=== PATIENT | female | born 2000 | race American Indian/Alaskan Native ===

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

== ENCOUNTER 2021-11-13 19:00 | Emergency (ER) | payer BC, OTHER ==
[2021-11-14 02:56] LABS: Color,Urine Yellow (Yellow)
[2021-11-14 03:00] LABS: Bacteria,Urine 2+ /HPF (Negative); Mucus,Urine 3+ /HPF
[2021-11-14 03:01] LABS: HCG Qualitative,Urine Negative (Negative)
--- NOTE | 2021-11-14 03:24 | Emergency Department Report ---
ED Female HPI - General Chief complaint: Urogenital-Female Stated complaint: VAGINAL IRRITATION Source: patient Mode of arrival: Ambulatory Limitations: No Limitations - History of Present Illness Initial comments: Patient is a A1 20-year-old -Romanian female with no past medical history who presents to the ED with complaint of persistent vaginal itching and irritation, vaginal discharge, urinary frequency and urgency and dysuria for the last 2 months. Patient states that she has been using "home remedies" with no relief. Patient denies fever, chills, low back pain, chest pain or shortness of breath, abdominal pain, nausea and vomiting and diarrhea, dyspareunia, cough, sore throat or vaginal bleeding. MD Complaint: vaginal discharge, other (vaginal itching and irritation) -: Gradual, month(s) (2) Location: labia, other (vaginal) Radiation: non-radiating Severity: moderate Severity scale (0 -10): 4 Quality: burning, other (itching) Consistency: constant Improves with: none Worsens with: urination Are you Now?: No Last Menstrual Period: 10/23/21 EDC: 07/30/22 Associated Symptoms: vaginal discharge, dysuria. denies: vaginal bleeding, abdominal pain, nausea/vomiting, fever/chills, headaches, loss of appetite, hematuria, rash, seizure, shortness of breath, syncope, weakness - Related Data Sexually active: Yes : 1 Para: 0 A: 1 Previous Rx's Medication Instructions Recorded Last Taken Type Nitrofurantoin Monohyd/M-Cryst 100 mg PO BID #13 capsule 09/05/17 Unknown Rx [Macrobid 100 mg Capsule] Phenazopyridine [Pyridium] 100 mg PO TID #6 tab 09/05/17 Unknown Rx Amoxicillin 500 mg PO Q12H #20 capsule 03/06/18 Unknown Rx Ciprofloxacin 0.2%(Nf) 2 drops AU TID 7 Days #1 droperette 03/06/18 Unknown Rx [Ciprofloxacin Otic 0.2%(Nf)] Ibuprofen [Motrin] 600 mg PO Q8H PRN #20 tablet 03/06/18 Unknown Rx Fluconazole (Nf) [Diflucan TAB] 150 mg PO ONCE #2 tablet 11/14/21 Unknown Rx Ibuprofen [Motrin] 600 mg PO Q8H PRN #30 tablet 11/14/21 Unknown Rx Nystatin Oint [Mycostatin Oint] 1 applicatio TP BID #1 tube 11/14/21 Unknown Rx cephALEXin [Keflex] 500 mg PO Q6HR #40 capsule 11/14/21 Unknown Rx metroNIDAZOLE [Flagyl] 500 mg PO Q12HR #14 tab 11/14/21 Unknown Rx Allergies Allergy/AdvReac Type Severity Reaction Status Date / Time bee venom protein (honey bee) Allergy Shortness Verified 09/05/17 09:20 of Breath wasp Allergy Rash Uncoded 09/05/17 09:20 ED Review of Systems ROS: Stated complaint: VAGINAL IRRITATION Other details as noted in HPI Constitutional: denies: chills, fever Eyes: denies: eye pain, eye discharge, vision change ENT: denies: ear pain, throat pain Respiratory: denies: cough, shortness of breath, wheezing Cardiovascular: denies: chest pain, palpitations Endocrine: no symptoms reported Gastrointestinal: denies: abdominal pain, nausea, diarrhea Genitourinary: urgency, dysuria, frequency, discharge, other (Vaginal irritation) Musculoskeletal: denies: back pain, joint swelling, arthralgia Skin: denies: rash, lesions Neurological: denies: headache, weakness, paresthesias Psychiatric: denies: anxiety, depression Hematological/Lymphatic: denies: easy bleeding, easy bruising ED Past Medical Hx - Social History Smoking Status: Never Smoker Substance Use Type: None - Medications Home Medications: Home Medications Medication Instructions Recorded Confirmed Last Taken Type Nitrofurantoin Monohyd/M-Cryst 100 mg PO BID #13 capsule 09/05/17 Unknown Rx [Macrobid 100 mg Capsule] Phenazopyridine [Pyridium] 100 mg PO TID #6 tab 09/05/17 Unknown Rx Amoxicillin 500 mg PO Q12H #20 capsule 03/06/18 Unknown Rx Ciprofloxacin 0.2%(Nf) 2 drops AU TID 7 Days #1 droperette 03/06/18 Unknown Rx [Ciprofloxacin Otic 0.2%(Nf)] Ibuprofen [Motrin] 600 mg PO Q8H PRN #20 tablet 03/06/18 Unknown Rx Fluconazole (Nf) [Diflucan TAB] 150 mg PO ONCE #2 tablet 11/14/21 Unknown Rx Ibuprofen [Motrin] 600 mg PO Q8H PRN #30 tablet 11/14/21 Unknown Rx Nystatin Oint [Mycostatin Oint] 1 applicatio TP BID #1 tube 11/14/21 Unknown Rx cephALEXin [Keflex] 500 mg PO Q6HR #40 capsule 11/14/21 Unknown Rx metroNIDAZOLE [Flagyl] 500 mg PO Q12HR #14 tab 11/14/21 Unknown Rx ED Physical Exam - General Limitations: No Limitations General appearance: alert, in no apparent distress - Head Head exam: Present: atraumatic, normocephalic, normal inspection - Eye Eye exam: Present: normal appearance, PERRL, EOMI Pupils: Present: normal accommodation - ENT ENT exam: Present: normal exam, normal orophraynx, mucous membranes moist, TM's normal bilaterally, normal external ear exam - Neck Neck exam: Present: normal inspection, full ROM - Respiratory Respiratory exam: Present: normal lung sounds bilaterally. Absent: respiratory distress, wheezes, rales, rhonchi, chest wall tenderness, accessory muscle use, decreased breath sounds, prolonged expiratory - Cardiovascular Cardiovascular Exam: Present: regular rate, normal rhythm, normal heart sounds. Absent: systolic murmur, diastolic murmur, rubs, gallop - GI/Abdominal GI/Abdominal exam: Present: soft, normal bowel sounds. Absent: tenderness, guarding, rebound, rigid, hyperactive bowel sounds, hypoactive bowel sounds, organomegaly, bruit - Bi-manual exam: Present: other (Pelvic exam deferred at this time) - Extremities Exam Extremities exam: Present: normal inspection, full ROM, normal capillary refill. Absent: tenderness - Back Exam Back exam: Present: normal inspection, full ROM. Absent: tenderness, CVA tenderness (R), CVA tenderness (L), muscle spasm - Neurological Exam Neurological exam: Present: alert, oriented X3, CN II-XII intact, normal gait, reflexes normal - Psychiatric Psychiatric exam: Present: normal affect, normal mood - Skin Skin exam: Present: warm, dry, intact, normal color. Absent: rash ED Medical Decision Making - Medical Decision Making This is a A1 20-year-old -[place]ian female with no past medical history who presents to the ED with complaint of persistent vaginal itching and irritation, vaginal discharge, urinary frequency and urgency and dysuria for the last 2 months. Patient states that she has been using "home remedies" with no relief. In the ED, patient is alert and oriented x3 and is not in any distress. Patient is hemodynamically stable. Urinalysis showed significant urinary tract infection and significant yeast. Wet prep test was positive for Gardnerella vaginalis consistent with bacterial vaginosis. Patient was therefore discharged home on medications and advised to follow-up with her primary care physician in 7 to 10 days for reevaluation or return to the ED immediately if symptoms get worse. - Differential Diagnosis Bacterial vaginosis; UTI; STD; Adela vaginitis; trichomonas; Critical care attestation.: If time is entered above; I have spent that time in minutes in the direct care of this critically ill patient, excluding procedure time. ED Disposition Clinical Impression: Bacterial vaginosis, Candidal vaginitis, Acute urinary tract infection Disposition: HOME / SELF CARE / HOMELESS Is pt being admited?: No Does the pt Need Aspirin: No Condition: Stable Instructions: Bacterial Vaginosis (ED), Bacterial Vaginosis, [id number], Vaginal Yeast Infection, Adult, Urinary Tract Infection, Adult, [id number], Vaginitis, [id number] Additional Instructions: Take medication with food, drink plenty of fluids and follow up with your Primary Care Physician in 7-10 days for reevaluation. Return to the ED immediately if symptoms get worse. Prescriptions: Fluconazole (Nf) [Diflucan TAB] 150 mg PO ONCE #2 tablet metroNIDAZOLE [Flagyl] 500 mg PO Q12HR #14 tab cephALEXin [Keflex] 500 mg PO Q6HR #40 capsule Ibuprofen [Motrin] 600 mg PO Q8H PRN #30 tablet PRN Reason: Pain Nystatin Oint [Mycostatin Oint] 1 applicatio TP BID #1 tube Referrals: [facility] [Provider Group] - 7-10 days Forms: STI Treatment and Prevention, Work/School Release Form(ED) Time of Disposition: 03:20 Print Language: AZERI
[2021-11-14 04:31] VITALS: BP 136/90
== END 2021-11-14 04:31 | disposition home or self-care (01) ==
LOC: ED 19:00
DX: N76.0 Acute vaginitis (principal); N39.0 Urinary tract infection, site not specified; B37.3 Candidiasis of vulva and vagina
CPT/HCPCS: 81001; 81025; 87086; 87210; 99283